=== PATIENT | male | born 1940 | race Caucasian/White ===

== ENCOUNTER → 2022-03-11 13:10 | Outpatient (BNVA) | payer MEDICARE, SELFPAY | PROVIDERS: Family Provider Nurse Practitioner Family; PCP Student in an Organized Health Care Education/Training Program; Visit Provider Internal Medicine Cardiovascular Disease | DX: I10 Essential (primary) hypertension (principal); I73.9 Peripheral vascular disease, unspecified; I35.0 Nonrheumatic aortic (valve) stenosis; R01.1 Cardiac murmur, unspecified; F17.200 Nicotine dependence, unspecified, uncomplicated | CPT/HCPCS: 99213 ==

== ENCOUNTER → 2022-09-14 15:00 | Outpatient (BNVA) | payer MEDICARE, SELFPAY | PROVIDERS: Family Provider Nurse Practitioner Family; PCP Family Medicine; Visit Provider Internal Medicine | DX: I10 Essential (primary) hypertension (principal); R01.1 Cardiac murmur, unspecified; I73.9 Peripheral vascular disease, unspecified; I35.0 Nonrheumatic aortic (valve) stenosis; F17.200 Nicotine dependence, unspecified, uncomplicated | CPT/HCPCS: 99214 ==

== ENCOUNTER → 2023-03-16 14:58 | Outpatient (BNVA) | payer MEDICARE, SELFPAY | PROVIDERS: Family Provider Nurse Practitioner Family; PCP Family Medicine; Visit Provider Internal Medicine | DX: I10 Essential (primary) hypertension (principal); R01.1 Cardiac murmur, unspecified; I73.9 Peripheral vascular disease, unspecified; I35.0 Nonrheumatic aortic (valve) stenosis; F17.200 Nicotine dependence, unspecified, uncomplicated; Z79.82 Long term (current) use of aspirin | CPT/HCPCS: 99214 ==

== ENCOUNTER → 2023-09-15 13:49 | Outpatient (BNVA) | payer MEDICARE, SELFPAY | PROVIDERS: Family Provider Nurse Practitioner Family; PCP Family Medicine; Visit Provider Internal Medicine | DX: I10 Essential (primary) hypertension (principal); I35.0 Nonrheumatic aortic (valve) stenosis; R01.1 Cardiac murmur, unspecified; I73.9 Peripheral vascular disease, unspecified; F17.200 Nicotine dependence, unspecified, uncomplicated | CPT/HCPCS: 99214 ==

== ENCOUNTER 2023-09-23 12:39 | Outpatient (CLI) | payer MEDICARE, SELFPAY ==
--- NOTE | 2023-09-23 13:00 | USCV_ITS ---
Emmanuel Camarena Age: 82 Gender: M : 1940 Exam Date: 09/23/2023 12:49 Ordering Phys: Lenin Amador M.D ([email or web address]) Technologist: [place] [facility] [place]: aortic sten BP: 145 / 81 HR: 49 Rhythm: Sinus Technical Quality: Adequate MEASUREMENTS (Male / Female) Normal Values 2D ECHO LV Diastolic Diameter PLAX 4.1 cm 4.2 - 5.9 / 3.9 - 5.3 cm LV Systolic Diameter PLAX 2.9 cm IVS Diastolic Thickness 1.3 cm 0.6 - 1.0 / 0.6 - 0.9 cm IVS Systolic Thickness 1.4 cm LVPW Diastolic Thickness 1.6 cm 0.6 - 1.0 / 0.6 - 0.9 cm LVPW Systolic Thickness 1.4 cm LVOT Diameter 2.1 cm LV Ejection Fraction 2D Teich 58.9 % LV Ejection Fraction MOD 2C 63.1 % LV Ejection Fraction 2C AL 63.4 % LA Diameter 3.9 cm IVC Diameter 2.9 cm M-MODE Aortic Annulus Diameter 3.4 cm LA Ao Ratio MM 1.2 MV E Point Septal Separation 0.9 cm DOPPLER AV Peak Velocity 460.0 cm/s LVOT Peak Velocity 104.0 cm/s AV Area Cont Eq vti 0.7 cm squared AV Area Cont Eq pk 0.8 cm squared MV Area PHT 5.0 cm squared Mitral E to A Ratio 0.9 MV E' Velocity 74.0 cm/s Mitral E to MV E' Ratio 17.1 Mitral E to LV E' Lateral Ratio 15.2 Mitral E to LV E' Septal Ratio 19.5 TR Peak Velocity 157.0 cm/s TR Peak Gradient 9.9 mmHg TV Peak E Velocity 82.0 cm/s Right Atrial Pressure 3.0 mmHg Pulmonary Artery Systolic Pressu 12.9 mmHg RV Acceleration Time 0.2 s FINDINGS Left Ventricle Left ventricle is normal in size. LV systolic function is normal with EF 55 to 60%. No regional wall motion abnormalities are seen. Grade 1 diastolic dysfunction. Right Ventricle Normal in size and function Right Atrium Normal in size Left Atrium Normal in size Mitral Valve Moderate mitral annular calcification seen. Mild mitral regurgitation. Aortic Valve Aortic valve is thickened and calcified. Moderate aortic regurgitation. Severe aortic stenosis with mean gradient across aortic valve of 38 mmHg and aortic valve area of 0.7 cm squared. Tricuspid Valve Mild tricuspid regurgitation. Pulmonary artery systolic pressure is normal. Pulmonic Valve Not well visualized. Trace pulmonic regurgitation. Pericardium Normal Aorta Normal in size IVC Dilated CONCLUSIONS LV systolic function is normal with EF 55 to 60%. Grade 1 diastolic dysfunction. Mild mitral regurgitation Moderate aortic regurgitation Severe aortic stenosis Mild tricuspid regurgitation Trace pulmonic regurgitation IVC is dilated. No comparison studies are available Lenin Amador MD (Electronically Signed) Final Date: 27 September 2023 10:00 S
== END 2023-09-23 12:40 | disposition home or self-care (01) ==
LOC: RAD 12:39
PROVIDERS: Family Provider Nurse Practitioner Family; PCP Family Medicine; Visit Provider Internal Medicine
DX: I08.3 Combined rheumatic disorders of mitral, aortic and tricuspid valves (principal)
CPT/HCPCS: 93306

== ENCOUNTER → 2023-09-29 12:47 | Outpatient (BNVA) | payer MEDICARE, SELFPAY | PROVIDERS: Family Provider Nurse Practitioner Family; PCP Family Medicine; Visit Provider Nurse Practitioner Family | DX: I35.0 Nonrheumatic aortic (valve) stenosis (principal); I10 Essential (primary) hypertension; F17.200 Nicotine dependence, unspecified, uncomplicated; D64.9 Anemia, unspecified | CPT/HCPCS: 36415; 80048; 82728; 83540; 83550; 85025; 85610; 99214 ==

== ENCOUNTER 2023-10-10 00:44 | Inpatient (IN) | payer MEDICARE, SELFPAY ==
[2023-10-10] VITALS (10 sets, daily range): BP systolic 93–139; BP diastolic 61–68; PULSE 94–129; RESP 17–24; TEMP 36.4–36.7; O2SAT 91–97; BMI 25.4
--- NOTE | 2023-10-10 03:33 | XRR_ITS ---
PROCEDURE INFORMATION: Exam: XR Chest Exam date and time: 10/10/2023 5:06 AM Age: 83 years old Clinical indication: Shortness of breath; Patient HX: C/O SOB; Additional info: Pulmonary edema TECHNIQUE: Imaging protocol: Radiologic exam of the chest. Views: 1 view. COMPARISON: No relevant prior studies available. FINDINGS: Lungs: See Heart/Mediastinum finding. Pleural spaces: There are likely small pleural effusions. Heart/Mediastinum: Cardiomegaly. Pulmonary vascular congestion/edema. Bones/joints: Unremarkable. XR/XR chest 1V portable [id number] IMPRESSION: Cardiomegaly with pulmonary vascular congestion/edema. There are likely small pleural effusions
--- NOTE | 2023-10-10 04:37 | P.HP_ITS ---
Providers/Chief Complaint Admitting Physician: Loretta Carlos MD Primary Care Provider: Katelynn Cope MD Chief Complaint: CHF History of Present Illness Emmanuel Camarena is a 83 year old male with a known history of severe aortic stenosis KARLEE 0.7 cm? who presented to the emergency room today with chief complaints of worsening dyspnea on exertion starting around the of this month. Patient states he was in his usual state of health until around the when he started experiencing increasing dyspnea on exertion. He states that initially dyspnea was brought on only with activity, on walking long distances, however over the course of past week it has progressed to the point where he can barely walk from bed into the doorway. He has to stop and rest to catch his breath. He recently started albuterol inhalation and has been taking Spiriva daily, but this does not make a significant difference to his symptoms. Associated symptoms are that of chest pressure, located in the middle of the chest, related to activity. States that he has not been able to sleep well, he prefers to keep his head end of the bed elevated tonight no denies any orthopnea at home. He has not noticed any lower extremity swelling. Denies any cough or expectoration. At baseline. He is a chronic smoker and had it repeated cough Guirgius do not think he has had any URI type symptoms recently. Denies any fever. He is not On any diuretics but was given Lasix tonight at [facility] where he went initially with the symptoms. He is known to have severe aortic stenosis, LVEF 55 to 60%, grade 1 diastolic dysfunction as of most recent echocardiogram checked on 09/23/2023. He was planned for a left and right heart cath with Dr. Amador on October 14, 2022 in a nticipation of TAVR Pertinent Labs from outside hospital as follows CTA chest negative for PE, possible pulmonary congestion with bilateral pleural effusions. COVID PCR negative, flu a and B antigens negative WBC 7.1, hemoglobin 8.7, platelets 326, BUN 38, creatinine 1.3, LFTs within normal limits Mag 2.3 , BNP 5600 EKG showing sinus tachycardia with heart rate between 100 to 110 bpm, ST segment depression in leads II and aVF V5 V6, no prior EKGs currently seen in the system to compare. Troponin I 0.885--> 0.876, BNP 5660. He received Lasix 80 mg IV in the emergency room and morphine 2 mg. Also received Lovenox 76 mg at full dosing. Review of Systems General: Reports: 10 or more systems reviewed and unremarkable except in HPI and below Const: Denies: fever(s), chills or body aches Eyes: Denies: change in vision, blurry vision or photophobia ENMT: Reports: hoarseness; Denies: throat pain, enlarged tonsils, odynophagia or nasal congestion Card: Denies: chest pain, palpitations, irregular heart rhythm, edema, swelling of feet/ankles, lightheadedness, pre-syncope, dyspnea on exertion or orthopnea Resp: Denies: dyspnea, productive cough, non-productive cough, wheezing, stridor, pain on inspiration, change in phlegm color, hemoptysis or chest congestion GI: Denies: abdominal pain, nausea, vomiting, hematemesis, coffee ground emesis, dysphagia, heartburn, diarrhea, constipation, GI cramping, change in stool character, hematochezia or melena : Denies: flank pain, dysuria, urinary frequency, urinary urgency, urinary hesitancy or hematuria Musc: Denies: neck pain, back pain, extremity pain, joint swelling, joint warmth or deformity Neuro: Denies: headache(s), numbness in extremities, weakness in extremities, sensory changes, difficulty walking, frequent falls, dizziness, vertigo, behavioral changes, Slurred speech present or seizure-like activity Psych: Denies: anxiety, depression, suicidal ideation or homicidal ideation Endo: Denies: polyuria, polydipsia, tired all the time, cold intolerance or hot flashes Saeid/Lymph: Denies: easy bruising or easy bleeding Medications/Allergies Home Medications Medication Instructions Recorded Confirmed Last Taken Type aspirin 81 mg tablet,delayed 81 mg PO DAILY 03/12/20 10/10/23 10/08/23 History release (Adult Low Dose Aspirin) finasteride 5 mg tablet 5 mg PO DAILY 03/12/20 10/10/23 10/09/23 History tamsulosin 0.4 mg capsule 0.4 mg PO DAILY 03/12/20 10/10/23 10/09/23 History triamterene 37.5 1 tab PO DAILY 03/13/20 10/10/23 10/09/23 History mg-hydrochlorothiazide 25 mg tablet acetaminophen 650 mg 650 mg PO Q12H 09/11/20 10/10/23 10/09/23 History tablet,extended release (Arthritis Pain Relief (acetaminophen) ER) ipratropium 20 mcg-albuterol 100 1 puff inhalation Q6H PRN 09/11/20 10/10/23 10/09/23 History mcg/actuation mist for inhalation Shortness Of Breath (Combivent Respimat) vitamin B complex (B 1 tab PO DAILY 09/10/21 10/10/23 10/09/23 History Complex-Vitamin B12 tablet) metoprolol succinate 25 mg 12.5 mg (1/2 x 25 mg) PO DAILY #45 11/16/22 10/10/23 10/09/23 Rx tablet,extended release 24 hr tabs Allergies Allergy/AdvReac Type Severity Reaction Status Date / Time Antihistamines - Allergy Mild Makes skin Verified 09/29/23 13:00 Ethylenediamine crawl Penicillins Allergy Mild Rash Verified 09/29/23 13:00 PFSH Acute PFSH: Medical History Aortic stenosis Peripheral arterial disease Claudication HTN (hypertension) Family History Mother Myocardial infarction Cancer Father Hypertension Social History Smoking and tobacco/nicotine status: current every day tobacco/nicotine user Vitals/I&O/Wt Last Vital Signs Temp 97.6 F 10/10/23 03:25 Pulse 96 10/10/23 03:25 Resp 20 H 10/10/23 03:25 BP 128/61 10/10/23 03:25 Pulse Ox 93 10/10/23 03:25 O2 Del Method Room Air 10/10/23 03:25 Weight last 48 hrs Weight 78.018 kg Physical Exam Narrative: General: No acute distress, AO x3 HEENT: PERRLA, pupils bilaterally equal and reactive, pallors not present Chest: Wheezing right infrascapular area CVS: S1-S2 regular, no murmurs, no tachycardia, no gallops, no rubs Abdomen: Soft, nontender, no organomegaly, bowel sounds present Neuro: No focal deficits, no facial deformity, AO x3, power 5/5 in all limbs A&P Assessment and plan (1) Aortic stenosis: Qualifiers: Cardiac valve disease etiology: nonrheumatic Qualified Code(s): I35.0 - Nonrheumatic aortic (valve) stenosis (2) CHF (congestive heart failure): (3) Chest pain: Plan 83-year-old male with past medical history of aortic stenosis presenting today with chief complaints of worsening dyspnea on exertion over the past week and intermittent chest pain. Records reviewed from outside hospital. CTA negative for PE Troponins mildly elevated, troponin I ranging 0.88 x 2 , will recheck series here. Elevated BNP at 5600, CTA showing bilateral vascular congestion, overall clinical impression was that of CHF. CHF likely to be acute on chronic diastolic CHF, likely also contributed by severe aortic stenosis. He has received Lasix 80 mg IV at [facility] ER, closely monitor urine output and creatinine with a.m. labs. Continue Lasix 40 mg IV daily Cardiology consult in view of chest pain, new decompensation of CHF, severe . Noted to have wheezing left upper lobe, DuoNeb inhalation every 6 hours scheduled. Patient is a daily smoker, may possibly have underlying COPD though not officially diagnosed. Negative COVID PCR and influenza antigens as tested at [facility] today. Anemia, HB 8.7, down from 10.6 when tested on 09/29, check iron studies, FOBT. DVT ppx: lovenox Full code Attestations Medical Necessity Statement*: > 2 midnight stay is anticipated Coding Level of Care Code Acute Code for Chg Fwd High MDM includes number and complexity of problems actively addressed during encounter, amount and/or complexity of data reviewed/ordered and described risk of complication, morbidity or mortality of management as documented Diagnoses Nonrheumatic aortic valve stenosis I35.0 Cardiac valve disease etiology: nonrheumatic CHF (congestive heart failure) I50.9 Chest pain R07.9
[2023-10-10] MEDS: enoxaparin 40 mg/0.4 mL Syringe SUBCUT (04:42)
--- NOTE | 2023-10-10 05:26 | ECG_ITS ---
[facility] Test Date: 2023-10-10 Pat Name: Emmanuel Camarena Department: Room: 111 Gender: Male Online Facilitator: : 1940 Requested By: Loretta Carlos Order Number: [id number] Reading MD: Lenin Amador M.D. Measurements Intervals [place] Rate: 96 P: 46 NM: 182 QRS: 30 QRSD: 87 T: 50 QT: 339 QTc: 428 Interpretive Statements SINUS RHYTHM WITH OCCASIONAL SUPRAVENTRICULAR PREMATURE COMPLEXES LEFT ATRIAL ENLARGEMENT [-0.15mV P-WAVE IN V1/V2] NONSPECIFIC ST & T-WAVE ABNORMALITY No previous ECG available for comparison Electronically Signed On 10-10-2023 10:18:17 HEAD OF DIGITAL by Lenin Amador M.D. [email or web address].[email or web address] [facility] hospitalCore[facility]ang[facility].XIHA/store/[id number]
[2023-10-10 05:55] LABS: Troponin(5th) Baseline 294 ng/L (0-15)
--- NOTE | 2023-10-10 06:37 | ECG_ITS ---
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 Measurements Intervals [place] Rate: 93 P: 47 AL: 188 QRS: 23 QRSD: 89 T: 50 QT: 333 QTc: 415 Interpretive Statements SINUS RHYTHM LEFT ATRIAL ENLARGEMENT [-0.15mV P-WAVE IN V1/V2] NONSPECIFIC ST & T-WAVE ABNORMALITY Compared to ECG 10/10/2023 05:26:59 No significant changes Electronically Signed On 10-10-2023 10:21:37 SUPERVISOR ENROBING by Lenin Amador M.D. [id number]
[2023-10-10 07:13] LABS: Basophils % 0.4 %; Eosinophils % 0.3 %; Hematocrit 25.9 % (37-53); Lymphocytes # 1.6 10^3/uL (0.8-4.8); Lymphocytes % 20.1 %; Mean Corpuscular Hemoglobin 27.4 pg (27-33); Mean Corpuscular Volume 85.5 fl (82-101); Mean Platelet Volume 10.4 fL (7.4-10.4); Monocytes # 0.9 10^3/uL (0.2-0.9); Monocytes % 11.1 %; Neutrophils # 5.37 10^3/uL (1.8-7.7); Neutrophils % 67.7 %; Nucleated Red Blood Cells % 0 %; Platelet Count 310 10^3/cmm (157-399); Red Blood Count 3.03 10^6/uL (3.85-5.65); Red Cell Distribution Width 13.9 % (12.1-15.1); White Blood Count 7.92 10^3/uL (3.29-11.43)
[2023-10-10 07:46] LABS: Alanine Aminotransferase 20 U/L (0-41); Albumin Level 3.8 g/dL (3.5-5.2); Alkaline Phosphatase 91 U/L (40-130); Anion Gap 16.9 (5-19); Aspartate Amino Transferase 20 U/L (0-40); Blood Urea Nitrogen 41 mg/dL (8-23); Calcium 9.3 mg/dL (8.5-10.5); Carbon Dioxide 23 mmol/L (22-29); Chloride 98 mmol/L (98-107); Globulin 2.5 g/dL (1.3-4.6); Glucose 133 mg/dL (65-115); Osmolality Calculated 288 mOsm/kg (285-295); Potassium 4.9 mmol/L (3.5-5.1); Sodium 133 mmol/L (136-145); Total Bilirubin 0.5 mg/dL (0.15-1.2); Total Protein 6.3 g/dL (6.6-8.7)
[2023-10-10 07:48] LABS: Troponin 5 2HR Delta 8.4 ABS# (0-10)
[2023-10-10 07:55] LABS: Troponin 5 2HR 302.4 ng/L (0-15)
[2023-10-10 08:04] LABS: Estmated Average Glucose 128; Hemoglobin A1C 6.1 % (4.0-6.0)
[2023-10-10 08:07] LABS: Ferritin 15 ng/mL (30-400); Iron 11 ug/dL (59-158); Percent Saturation 3.1 % (20-50); Total Iron Binding Capacity 352 mcg/dl; Unsaturated Iron Binding 341 ug/dL (112-347)
[2023-10-10 08:22] LABS: Vitamin B12 855 pg/mL (232-1245)
[2023-10-10] MEDS: FUROsemide 10 mg/mL SDV 4mL 40 MG IVP (08:29)
[2023-10-10] MEDS: aspirin 81 mg EC Tablet PO (08:30)
[2023-10-10] MEDS: atorvastatin 40 mg Tablet PO (08:30)
[2023-10-10] MEDS: tamsulosin 0.4 mg Capsule PO (08:30)
[2023-10-10] MEDS: pantoprazole DR 40 mg Tablet PO (08:30)
[2023-10-10] MEDS: metoprolol succinate ER (24 HR) 25 mg Tablet 12.5 MG PO (08:30)
[2023-10-10] MEDS: finasteride 5 mg Tablet PO (08:30)
[2023-10-10 08:49] LABS: Folate Level > 20.0 ng/mL (4.5-32.2)
[2023-10-10] MEDS: ipratropium-albuterol 3 mL Neb INHALATION (08:56)
--- NOTE | 2023-10-10 10:50 | ECG_ITS ---
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 Measurements Intervals [place] Rate: 132 P: 0 MA: 0 QRS: 16 QRSD: 96 T: 7 QT: 294 QTc: 437 Interpretive Statements ATRIAL FIBRILLATION WITH RAPID VENTRICULAR RESPONSE NONSPECIFIC ST & T-WAVE ABNORMALITY Compared to ECG 10/10/2023 06:37:50 Sinus rhythm no longer present Atrial abnormality no longer present T-wave abnormality still present Electronically Signed On 10-10-2023 14:23:52 MIXING MACHINE TENDER CORK ROD by Lenin Amador M.D. [id number]
--- NOTE | 2023-10-10 11:28 | P.CONIM_ITS ---
Providers/Reason For Consult 2 Consulting Physician/Specialty*: Lenin Amador MD/ Cardiology Reason for Consult*: Aortic stenosis Requesting Physician: Dr Carlos Attending Physician: Alfredo Chavarria Primary Care Provider: Katelynn Cope MD History of Present Illness History of Present Illness Emmanuel Camarena is a 83 year old male with past medical history of aortic stenosis with most recent echo shows severe aortic stenosis with valve area of 0.7 cm2 and mean gradient of 38 mmHg. He was scheduled to undergo right and left heart cath coming week as pre-TAVR workup. For last 1 week he started noticing more shortness of breath. He also was experiencing orthopnea. For these complaints he came to the hospital. His NT proBNP is elevated. Denies chest pain. Has received Lasix. This morning he went into A-fib with RVR. Heart rate is fluctuating between 120 to 150. He is becoming progressively more short of braeth. Review of Systems 2 General: Reports: 10 or more systems reviewed and unremarkable except in HPI and below Const: Denies: fever(s), chills or body aches Eyes: Denies: change in vision, blurry vision or photophobia ENMT: Reports: hoarseness; Denies: throat pain, enlarged tonsils, odynophagia or nasal congestion Card: Reports: palpitations, swelling of feet/ankles, dyspnea on exertion and orthopnea; Denies: chest pain, irregular heart rhythm, edema, lightheadedness or pre- syncope Resp: Reports: dyspnea; Denies: productive cough, non-productive cough, wheezing, stridor, pain on inspiration, change in phlegm color, hemoptysis or chest congestion GI: Denies: abdominal pain, nausea, vomiting, hematemesis, coffee ground emesis, dysphagia, heartburn, diarrhea, constipation, GI cramping, change in stool character, hematochezia or melena : Denies: flank pain, dysuria, urinary frequency, urinary urgency, urinary hesitancy or hematuria Musc: Denies: neck pain, back pain, extremity pain, joint swelling, joint warmth or deformity Neuro: Denies: headache(s), numbness in extremities, weakness in extremities, sensory changes, difficulty walking, frequent falls, dizziness, vertigo, behavioral changes, Slurred speech present or seizure-like activity Psych: Denies: anxiety, depression, suicidal ideation or homicidal ideation Endo: Denies: polyuria, polydipsia, tired all the time, cold intolerance or hot flashes Saeid/Lymph: Denies: easy bruising or easy bleeding Medications/Allergies Home Medications Medication Instructions Recorded Confirmed Last Taken Type aspirin 81 mg tablet,delayed 81 mg PO DAILY 03/12/20 10/10/23 10/08/23 History release (Adult Low Dose Aspirin) finasteride 5 mg tablet 5 mg PO DAILY 03/12/20 10/10/23 10/09/23 History tamsulosin 0.4 mg capsule 0.4 mg PO DAILY 03/12/20 10/10/23 10/09/23 History triamterene 37.5 1 tab PO DAILY 03/13/20 10/10/23 10/09/23 History mg-hydrochlorothiazide 25 mg tablet acetaminophen 650 mg 650 mg PO Q12H 09/11/20 10/10/23 10/09/23 History tablet,extended release (Arthritis Pain Relief (acetaminophen) ER) ipratropium 20 mcg-albuterol 100 1 puff inhalation Q6H PRN 09/11/20 10/10/23 10/09/23 History mcg/actuation mist for inhalation Shortness Of Breath (Combivent Respimat) vitamin B complex (B 1 tab PO DAILY 09/10/21 10/10/23 10/09/23 History Complex-Vitamin B12 tablet) metoprolol succinate 25 mg 12.5 mg (1/2 x 25 mg) PO DAILY #45 11/16/22 10/10/23 10/09/23 Rx tablet,extended release 24 hr tabs Allergies Allergy/AdvReac Type Severity Reaction Status Date / Time Antihistamines - Allergy Mild Makes skin Verified 09/29/23 13:00 Ethylenediamine crawl Penicillins Allergy Mild Rash Verified 09/29/23 13:00 Current Medications Generic Name Dose Route Start Last Admin Trade Name Freq PRN Reason Stop Dose Admin Albuterol/Ipratropium 3 ml 10/10/23 08:00 10/10/23 08:56 Ipratropium-Albuterol 3 Ml Neb INHALATION 3 ml Q6H.RESP CRISTÓBAL Administration Aspirin 81 mg 10/10/23 09:00 10/10/23 08:30 Aspirin 81 Mg Ec Tablet PO 81 mg DAILY CRISTÓBAL Administration Atorvastatin Calcium 40 mg 10/10/23 07:00 10/10/23 08:30 Atorvastatin 40 Mg Tablet PO 40 mg BEDTIME CRISTÓBAL Administration Finasteride 5 mg 10/10/23 09:00 10/10/23 08:30 Finasteride 5 Mg Tablet PO 5 mg DAILY CRISTÓBAL Administration Furosemide 40 mg 10/10/23 09:00 10/10/23 08:29 Furosemide 10 Mg/Ml Sdv 4ml IVP 40 mg DAILY CRISTÓBAL Administration Metoprolol Succinate 12.5 mg 10/10/23 09:00 10/10/23 08:30 Metoprolol Succinate Er (24 Hr) 25 Mg Tablet PO 12.5 mg DAILY CRISTÓBAL Administration Pantoprazole Sodium 40 mg 10/10/23 09:00 10/10/23 08:[address] 40 Mg Tablet PO 40 mg DAILY CRISTÓBAL Administration Tamsulosin HCl 0.4 mg 10/10/23 09:00 10/10/23 08:30 Tamsulosin 0.4 Mg Capsule PO 0.4 mg DAILY CRISTÓBAL Administration PFSH Acute 2 PFSH: Medical History Aortic stenosis Peripheral arterial disease Claudication HTN (hypertension) Family History Mother Myocardial infarction Cancer Father Hypertension Social History Smoking and tobacco/nicotine status: current every day tobacco/nicotine user Vitals/I&O/Wt Last Vital Signs Temp 97.6 F 10/10/23 07:06 Pulse 94 10/10/23 09:05 Resp 18 10/10/23 09:00 BP 139/66 10/10/23 07:06 Pulse Ox 93 10/10/23 09:00 O2 Del Method Room Air 10/10/23 09:00 10/09/23 10/10/23 10/10/23 22:59 06:59 14:59 Intake Total 100 / 100 Balance 100 / 100 Weight last 48 hrs Weight 172 lb Physical Exam 2 Narrative: GENERAL: Patient is alert, awake and oriented x3. [] NECK: No jugular vein distension. [] HEENT: No cyanosis. No icterus. No pallor. [] HEART: Tachycardia, irregularly irregular, grade 4/6 systolic murmur LUNGS: Diminished air entry bilaterally CENTRAL NERVOUS SYSTEM: Grossly nonfocal. [] EXTREMITIES: Lower extremities with 1+ edema bilaterally. Data 10/10/23 07:07 10/10/23 07:07 A&P Assessment and plan (1) Aortic stenosis: Qualifiers: Cardiac valve disease etiology: nonrheumatic Qualified Code(s): I35.0 - Nonrheumatic aortic (valve) stenosis (2) CHF (congestive heart failure): (3) Chest pain: (4) Atrial fibrillation: Plan Patient has severe aortic stenosis. He is currently undergoing workup for TAVR. However for the last few days he has worsening shortness of breath. Has presented with congestive heart failure symptoms. Today he also went into A-fib with RVR. Possibly intermittent atrial fibrillation has made symptoms worse. We will start him on amiodarone to convert his rhythm back as with aortic stenosis he may not tolerate A-fib well. If it does not convert back to normal rhythm in the next 1 to 2 hours, may consider cardioversion. Gentle diuresis. Will need heart cath and referral for TAVR. We will proceed with that as soon as possible. If patient's CHF symptoms do not improve, will be appropriate to transfer for balloon valvuloplasty. I had a detailed discussion regarding treatment plan in detail with patient and family. They are in agreement. Thank you for involving us with care of this patient. We will continue to follow. Please call with questions. Consult Attestations 2 Medical Necessity Statement: Care expected to cross 2 midnights. Coding Level of Care Code Acute Code for [facility] Fwd Diagnoses Nonrheumatic aortic valve stenosis I35.0 Cardiac valve disease etiology: nonrheumatic CHF (congestive heart failure) I50.9 Chest pain R07.9 Atrial fibrillation I48.91
[2023-10-10 11:30] LABS: Troponin 5 6HR Delta 14.3 ng/L (0-12)
[2023-10-10 11:31] LABS: Troponin 5 6HR 308.3 ng/L (0-15)
--- NOTE | 2023-10-10 12:13 | ECG_ITS ---
[facility] Test Date: 2023-10-10 Pat Name: Emmanuel Camarena Department: Room: 111 Gender: Male Cigar Maker: : 1940 Requested By: Lenin Amador Order Number: [id number] Wendy MD: Lenin Amador M.D. Measurements Intervals [place] Rate: 132 P: 0 MI: 0 QRS: 19 QRSD: 89 T: 39 QT: 287 QTc: 426 Interpretive Statements ATRIAL FIBRILLATION WITH RAPID VENTRICULAR RESPONSE NONSPECIFIC ST & T-WAVE ABNORMALITY Compared to ECG 10/10/2023 10:50:37 No significant changes Electronically Signed On 10-10-2023 14:23:08 FINAL OPERATIONS TECHNICIAN by Lenin Amador M.D. [email or web address].[id number]
[2023-10-10] MEDS: amiodarone 150 MG/100 ML PREMIX 400 MG IV (12:38)
[2023-10-10] MEDS: enoxaparin 80 mg/0.8 mL Syringe SUBCUT (12:38)
[2023-10-10 13:06] LABS: Magnesium 2.3 mg/dL (1.7-2.3)
--- NOTE | 2023-10-10 13:51 | P.DES_ITS ---
Discharge Providers DDS Date of Admission: 10/10/23 00:44 Date Summary Completed: 10/10/23 Attending Provider at Admission: Loretta Carlos MD Time of : 13:43 Attending Provider at Discharge: Alfredo Chavarria Primary Care Provider: Katelynn Cope MD DS Diagnoses Hospital Diagnoses (1) Aortic stenosis: Qualifiers: Cardiac valve disease etiology: nonrheumatic Qualified Code(s): I35.0 - Nonrheumatic aortic (valve) stenosis (2) CHF (congestive heart failure): (3) Chest pain: Reason for Visit Reason for Visit CHF Brief History: Emmanuel Camarena is a 83 year old male with a known history of severe aortic stenosis KARLEE 0.7 cm? who presented to the emergency room today with chief complaints of worsening dyspnea on exertion starting around the of this month. Patient states he was in his usual state of health until around the when he started experiencing increasing dyspnea on exertion. He states that initially dyspnea was brought on only with activity, on walking long distances, however over the course of past week it has progressed to the point where he can barely walk from bed into the doorway. He has to stop and rest to catch his breath. He recently started albuterol inhalation and has been taking Spiriva daily, but this does not make a significant difference to his symptoms. Associated symptoms are that of chest pressure, located in the middle of the chest, related to activity. States that he has not been able to sleep well, he prefers to keep his head end of the bed elevated tonight no denies any orthopnea at home. He has not noticed any lower extremity swelling. Denies any cough or expectoration. At baseline. He is a chronic smoker and had it repeated cough Guirgius do not think he has had any URI type symptoms recently. Denies any fever. He is not On any diuretics but was given Lasix tonight at [facility] where he went initially with the symptoms. He is known to have severe aortic stenosis, LVEF 55 to 60%, grade 1 diastolic dysfunction as of most recent echocardiogram checked on 09/23/2023. He was planned for a left and right heart cath with Dr. Amador on October 14, 2022 in anticipation of TAVR Pertinent Labs from outside hospital as follows CTA chest negative for PE, possible pulmonary congestion with bilateral pleural effusions. COVID PCR negative, flu a and B antigens negative WBC 7.1, hemoglobin 8.7, platelets 326, BUN 38, creatinine 1.3, LFTs within normal limits Mag 2.3 , BNP 5600 EKG showing sinus tachycardia with heart rate between 100 to 110 bpm, ST segment depression in leads II and aVF V5 V6, no prior EKGs currently seen in the system to compare. Troponin I 0.885--> 0.876, BNP 5660. He received Lasix 80 mg IV in the emergency room and morphine 2 mg. Also received Lovenox 76 mg at full dosing. Elevated baseline troponin of 249, pending 2 hr and 6 hr trend. start lovenox 1mg/kg s/c q12h, continue ASA, start statins. Cardiology called Summary Date and Time of Date of : 10/10/23 Time of : 13:43 Summary Summary: He had received [address] [facility]. Chest x-ray here still with noted cardiomegaly with pulmonary vascular congestion/edema, likely small pleural effusions. Requiring nasal cannula oxygen. On admission here was resumed on lower dose IV diuretic for decompensated congestive heart failure. With troponin elevation around 300 was started on treatment for possible NSTEMI, cardiology was consulted due to this and for angiography consideration as inpatient for assessment of severe aortic stenosis/referral for aortic valve replacement. Follow-up labs requested for anemia, DuoNebs for suspicion of undiagnosed underlying COPD. In the early afternoon he developed new atrial fibrillation with RVR, with heart rates up into 130s-140s. Blood pressure soft 93/65. He had already been on low-dose metoprolol 12.5 mg. Not a safe candidate for digoxin with noted acute kidney injury, creatinine 1.4, amiodarone was initiated. Just after using the urinal around 1 PM he was found unresponsive and heart rates progressively becoming bradycardic. He was given atropine and supported with [id number] ventilation but without response. Bradycardia worsened down into 20s and together with loss of pulse CPR was initiated for PEA rhythm, this continued, interspersed with occasional runs of ventricular fibrillation. He was intubated. ROSC achieved once early in resuscitation, but lost pulses again. Family was updated through the resuscitation, and on discussion with family per request further resuscitative efforts stopped after total resuscitation time of 40 minutes and family came back into the room to be by his side. Additional Data Advance directives?: Yes Discharge Plan Discharge Patient Disposition: At Medical Facility Condition: Stable Prescriptions: No Action triamterene-hydrochlorothiazid 37.5-25 mg tablet 1 tab PO DAILY vitamin B complex [B Complex-Vitamin B12] Tablet 1 tab PO DAILY aspirin [Adult Low Dose Aspirin] 81 mg tablet,delayed release (DR/EC) 81 mg PO DAILY finasteride 5 mg tablet 5 mg PO DAILY tamsulosin 0.4 mg capsule 0.4 mg PO DAILY Combivent Respimat 20-100 mcg/actuation mist 1 puff inhalation Q6H PRN (Reason: Shortness Of Breath) acetaminophen [Arthritis Pain Relief (acetam)] 650 mg tablet extended release 650 mg PO Q12H metoprolol succinate 25 mg tablet extended release 24 hr 12.5 mg PO DAILY Qty: 45 2RF Probable Cause of Probable cause of : Cardiac arrest DS Attestations Time Spent in /Discharge Care*: greater than 30 min Quality - AMI: AMI present?: Yes Quality - Stroke: CVA present?: No Quality - VTE: VTE present?: No Coding Level of Care Code Critical Care >/= 30 minutes Critical care time (in minutes): 40 The high probability of a clinically significant, sudden or life threatening deterioration, as referenced in this documentation, required my full and direct attention, intervention and personal management. The critical care time shown is in addition to time spent performing any reported separately billable procedures and includes the following: [x] Data and vital sign review and interpretation [x ] Patient assessment, examination and intervention [x] Medication orders and management [x] Patient/Family updates as able [x] Care Coordination and Documentation. Diagnoses Nonrheumatic aortic valve stenosis I35.0 Cardiac valve disease etiology: nonrheumatic CHF (congestive heart failure) I50.9 Chest pain R07.9
--- NOTE | 2023-10-10 14:30 | PC.NURSE ---
cardiac arrest:pt had just received an amioderone bolus for rapid afib...and was about to be started on an amioderone drip,when he stated he had to use the bathroom.pt stood at bedside to use urinal.rn stood behind curtain for pt privacy...and when rn returned to bedside,pt was laying in bed ,unresponsive.did have a pulse.agonal breathing noted.rapid response called at 1258...then heart rate noted to be slowly decreasing...atropine 1 mg given iv push when hr noted to be down in 30's...then pulse loss noted.. code blue called at 1303.full resuscitation ensued...pt intubated,several amps epi given,defibrillated several times..code called .and time of was 134
--- NOTE | 2023-10-10 16:08 | PC.NURSE ---
RR/Code Blue Rapid response called overheard @1258. Patient found to have agonal breathing and then became bradycardic as reported by primary nurse after a bolus of Amio was given and patient then requested to use urinal @bedside. Patient found to have a HR in the lower 30's. Patient initially bagged by RT until intubation during code blue. Amp of Atropine given IVP at start of Rapid response call. Code Blue was then called after patient did not recover from rapid response efforts. 1302 CODE CONRAD CALLED/CPR 1304 Pulse check/PEA/CPR 1305 EPI IVP 1306 Pulse Check/Intubated with 8.0 ET/Bradycardic and ROSC obtained. STAT CXR ordered 1309 PEA/CPR resumed 1311 Pulse Check/PEA/CPR/EPI IVP 1313 Pulse check/PEA/CPR 1314 EPI IVP 1316 Pulse Check/PEA/CPR 1317 EPI IVP 1318 Pulse Check/PEA/CPR 1320 Pulse Check/Vfib/EPI/Shock/CPR 1322 Pulse Check/PEA/CPR 1323 EPI IVP 1325 Pulse Check/PEA/CPR 1326 EPI IVP 1327 Pulse Check/PEA/CPR 1329 Pulse Check/PEA/CPR 1330 EPI IVP 1332 Pulse Check/Vfib/Shock/CPR 1333 EPI IVP 1334 Pulse Check/Vfib/Shock/CPR 1337 Pulse Check/Vfib/Shock/CPR 1339 Pulse Check/Vfib/Shock/CPR 1340 EPI IVP 1341 Pulse Check/PEA/CPR 1343 Pulse Check/PEA TOD called @1343.
--- NOTE | 2023-10-10 16:26 | PC.NURSE ---
[facility] notified of patient's passing by HS @0790. [facility] gives full releasal for both them and [facility] for ineligibility of donation. Ref # [id number]
--- NOTE | 2023-10-11 07:21 | PM.CCN ---
Critical Care Event Note The high probability of a clinically significant, sudden or life threatening deterioration of the patient's [cardiovascular] system(s) required my full and direct attention, intervention and personal management. The critical care time is as shown. This time is in addition to time spent performing any reported procedures but includes the following: [x] Data and vital sign review and interpretation [x] Patient assessment, examination and intervention [x] Documentation [x] Medication orders and management CODE CONRAD was called to the patient's room and responded with the code team upon my arrival CPR was in progress Dr. Haywood. During a pause for pulse check patient was intubated see procedure note. I did briefly manage the code as Dr. Chavarria stepped to the hallway to discuss the patient's condition with the family. During this time he was in PEA he was given 2 doses of IV push epi. Patient continued to remain in PEA. Dr. Chavarria returned to the room Dr. Chamorro also arrived in the room. At that point I left to return to the emergency room Dr. Chavarria and Dr. Chamorro for managing the COV at that time. Critical Care Time Code activated: Yes Critical Care Time (min): 0 Procedures Intubation Time out performed: No Sedative: none Laryngoscope: fiber optic video scope Assist device used: fiber optic device ET tube size: 8 ET tube uncuffed: No Tube secured depth (cm): 24 Tube secured location: lips Tube placement confirmation: visualized tube passing through cords, equal breath sounds bilaterally, no breath sounds over epigastrium, confirmation by capnometry and color change noted Patient tolerated procedure: well Additional comments: Initially observed tube through the cords on the video laryngoscope. There is a very weak color change initially. The tube and been passed to 24 at the lips. Using laryngoscope reevaluated the tube is in the cords however the cuff is above the cords. Cuff was deflated and the tube advanced to 28 cm. Good bilateral breath sounds and good color change. Tube was left at that level for the duration of the code we did achieve good oxygenation with it. Coding Level of Care Code Acute Code for [facility]
== END 2023-10-10 13:45 | disposition expired | DRG 291 ==
PROVIDERS: Admitting Provider Student in an Organized Health Care Education/Training Program; PCP Family Medicine; Visit Provider Internal Medicine
DX: I11.0 Hypertensive heart disease with heart failure (principal); I50.33 Acute on chronic diastolic (congestive) heart failure; I46.9 Cardiac arrest, cause unspecified; I48.91 Unspecified atrial fibrillation; I35.0 Nonrheumatic aortic (valve) stenosis; F17.200 Nicotine dependence, unspecified, uncomplicated; I73.9 Peripheral vascular disease, unspecified; D64.9 Anemia, unspecified; Z79.82 Long term (current) use of aspirin
CPT/HCPCS: 36415; 71045; 80053; 82607; 82728; 82746; 83036; 83540; 83550; 83735; 84484; 85025; 93005; 94640; 96372; J0283; J1650; J1940